=== PATIENT | male | born 2005 | race Caucasian/White ===

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

== ENCOUNTER 2023-11-25 14:30 | Inpatient (IN) ==
[2023-11-25 16:28] LABS: ABS Basophils 0.1 10^3/uL (0.0-0.1); ABS Eosinophils 0.2 10^3/uL (0.0-0.5); ABS Lymphocytes 1.3 10^3/uL (1.0-4.8); ABS Monocytes 0.5 10^3/uL (0.0-1.1); ABS Neutrophils 6.1 10^3/uL (1.5-7.6); ABS Nucleated RBC 0.01 10^3/ul; Eosinophil % 2.2 %; Hematocrit 38.3 % (38-53); Hemoglobin 12.6 g/dL (13.2-16.3); Lymphocyte % 15.9 %; Mean Corpuscular Hemoglobin 27.9 pg (27-33); Mean Corpuscular Hgb Conc 32.8 g/dL (31-36); Mean Corpuscular Volume 84.9 fL (80-97); Mean Platelet Volume 6.4 fL (7.5-11.2); Nucleated Red Blood Cells % 0.1 %/100WBC (0.0-0.8); Platelet Count 751 10^3/uL (150-450); Red Blood Count 4.51 10^6/uL (4.06-5.63); Red Cell Distribution Width 15.3 % (12-17); White Blood Count 8.1 10^3/uL (3.6-10.2)
[2023-11-25 16:45] LABS: Activated Partial Thrombo Time 37.5 seconds (26.0-38.0); INR 1.24 (0.83-1.13)
[2023-11-25 17:07] LABS: Albumin 4.5 g/dL (3.2-5.2); Albumin/Globulin Ratio 1.1 (1-3); C Reactive Protein 77.18 mg/L (<8.01); Calcium 9.7 mg/dL (8.6-10.3); Creatinine, Serum 0.76 mg/dL (0.67-1.17); Globulin 4.2 g/dL (2-4); Potassium 4.2 mmol/L (3.5-5.0); Total Bilirubin 0.3 mg/dL (0.2-1.0); Total Protein 8.7 g/dL (6.4-8.9)
[2023-11-25] MEDS: HYDROmorphone 0.5 MG/0.5 ML SYRINGE IV ONE (17:29)
[2023-11-25] MEDS: Cefepime 2 GM in Dextrose 2 GM/50 ML BAG IV ONE (17:59)
[2023-11-25] MEDS: Vancomycin 1,500 MG in NS 0.9% 250 ml 250 ML IVPB ONE (19:07)
[2023-11-25] MEDS: NS 0.9% 1000 ml BAG 1,000 ML IV SCH (20:58)
[2023-11-25] MEDS ORDERED: Vancomycin per Pharmacy 1 EA NOTE FOLLOW UP SCH (21:00)
[2023-11-25] MEDS: Heparin 5000 UNITS/ML 1 mL VIAL SUBCUT SCH (22:12)
[2023-11-25] MEDS: Senna TAB 8.6 mg TAB PO ONE (22:12)
[2023-11-26] MEDS: Vancomycin 1,250 MG in NS 0.9% 250 ml 250 ML IVPB SCH (02:28)
[2023-11-26] MEDS: Cefepime 1 GM in Dextrose 1 GM/50 ML BAG IV SCH (05:42)
[2023-11-26 05:58] LABS: ABS Eosinophils 0.2 10^3/uL (0.0-0.5); ABS Lymphocytes 1.8 10^3/uL (1.0-4.8); ABS Monocytes 0.6 10^3/uL (0.0-1.1); ABS Neutrophils 3.5 10^3/uL (1.5-7.6); Eosinophil % 3.7 %; Hematocrit 34.1 % (38-53); Hemoglobin 11.2 g/dL (13.2-16.3); Lymphocyte % 28.3 %; Mean Corpuscular Hemoglobin 27.9 pg (27-33); Mean Corpuscular Hgb Conc 32.7 g/dL (31-36); Mean Corpuscular Volume 85.3 fL (80-97); Mean Platelet Volume 6.3 fL (7.5-11.2); Platelet Count 570 10^3/uL (150-450); Red Blood Count 3.99 10^6/uL (4.06-5.63); Red Cell Distribution Width 15.2 % (12-17); White Blood Count 6.2 10^3/uL (3.6-10.2)
[2023-11-26] MEDS ORDERED: Cefepime ADVAN 1 GM in NS 0.9% 50 ML 50 ML IVPB SCH (06:00)
[2023-11-26 06:44] LABS: Calcium 8.7 mg/dL (8.6-10.3); Creatinine, Serum 0.71 mg/dL (0.67-1.17); Potassium 4.5 mmol/L (3.5-5.0); eGFR CKD-EPI 134.7 (>60)
[2023-11-26] MEDS: Morphine 2 MG/ML SYRINGE IV PRN (11:07)
[2023-11-26] MEDS: Vancomycin Trough Check NOTE FOLLOW UP ONE (19:50)
[2023-11-27 08:36] LABS: Hematocrit 33.8 % (38-53); Hemoglobin 11.3 g/dL (13.2-16.3); Mean Corpuscular Hemoglobin 28.5 pg (27-33); Mean Corpuscular Hgb Conc 33.4 g/dL (31-36); Mean Corpuscular Volume 85.4 fL (80-97); Mean Platelet Volume 6.2 fL (7.5-11.2); Platelet Count 558 10^3/uL (150-450); Red Blood Count 3.96 10^6/uL (4.06-5.63); Red Cell Distribution Width 15.4 % (12-17); White Blood Count 5.3 10^3/uL (3.6-10.2)
[2023-11-27] MEDS ORDERED: Senna TAB 8.6 mg TAB PO PRN (10:01)
[2023-11-28 06:27] LABS: ABS Eosinophils 0.3 10^3/uL (0.0-0.5); ABS Lymphocytes 1.4 10^3/uL (1.0-4.8); ABS Monocytes 0.6 10^3/uL (0.0-1.1); Eosinophil % 4.8 %; Hematocrit 34.5 % (38-53); Hemoglobin 11.3 g/dL (13.2-16.3); Lymphocyte % 26.7 %; Mean Corpuscular Hemoglobin 27.8 pg (27-33); Mean Corpuscular Hgb Conc 32.8 g/dL (31-36); Mean Corpuscular Volume 84.7 fL (80-97); Mean Platelet Volume 6.2 fL (7.5-11.2); Nucleated Red Blood Cells % 0.1 %/100WBC (0.0-0.8); Platelet Count 601 10^3/uL (150-450); Red Blood Count 4.07 10^6/uL (4.06-5.63); White Blood Count 5.3 10^3/uL (3.6-10.2)
[2023-11-28 06:44] LABS: Calcium 9.2 mg/dL (8.6-10.3); Creatinine, Serum 0.8 mg/dL (0.67-1.17); Potassium 4.4 mmol/L (3.5-5.0); eGFR CKD-EPI 129.9 (>60)
[2023-11-28 09:05] LABS: C Reactive Protein 77.5 mg/L (<8.01)
[2023-11-28] MEDS: Polyethylene Glycol 3350 17 GM PACKET PO PRN (16:12)
[2023-11-29 06:37] LABS: Hematocrit 35.9 % (38-53); Hemoglobin 12.1 g/dL (13.2-16.3); Mean Corpuscular Hemoglobin 28.6 pg (27-33); Mean Corpuscular Hgb Conc 33.7 g/dL (31-36); Mean Corpuscular Volume 84.7 fL (80-97); Mean Platelet Volume 6.3 fL (7.5-11.2); Platelet Count 629 10^3/uL (150-450); Red Blood Count 4.24 10^6/uL (4.06-5.63)
[2023-11-29 13:39] VITALS: BP 125/65
[2023-11-30] MEDS ORDERED: Vancomycin Trough Check NOTE FOLLOW UP ONE (09:30)
== END 2023-11-29 16:49 | disposition home or self-care (01) | DRG 724 ==
LOC: EDHOLD 14:30 → ED 14:30 → SUATTDRO 19:25 → MED 11-26 12:10
PROVIDERS: ADMIT Hospitalist; ATTEND Internal Medicine

== ENCOUNTER 2024-02-06 16:18 | Inpatient (IN) ==
[2024-02-06] MEDS: Acetaminophen IV 1 GM/100ML 1,000 MG/100 ML BAG IV ONE (16:45)
[2024-02-06] MEDS: Morphine 4 MG/ML VIAL (1 ml) IV ONE (16:45)
[2024-02-06] MEDS: Lactated Ringers 1000 ml BAG 1,000 ML IV ONE (16:46)
[2024-02-06 17:02] LABS: ABS Basophils 0.1 10^3/uL (0.0-0.1); ABS Eosinophils 0.1 10^3/uL (0.0-0.5); ABS Lymphocytes 1.8 10^3/uL (1.0-4.8); ABS Monocytes 0.6 10^3/uL (0.0-1.1); ABS Neutrophils 5.9 10^3/uL (1.5-7.6); ABS Nucleated RBC 0.01 10^3/ul; Eosinophil % 1.3 %; Hematocrit 41.8 % (38-53); Hemoglobin 13.8 g/dL (13.2-16.3); Lymphocyte % 21.1 %; Mean Corpuscular Hemoglobin 28.6 pg (27-33); Mean Corpuscular Volume 86.7 fL (80-97); Mean Platelet Volume 6.7 fL (7.5-11.2); Nucleated Red Blood Cells % 0.1 %/100WBC (0.0-0.8); Platelet Count 691 10^3/uL (150-450); Red Blood Count 4.82 10^6/uL (4.06-5.63); Red Cell Distribution Width 15.2 % (12-17); White Blood Count 8.5 10^3/uL (3.6-10.2)
[2024-02-06 17:06] LABS: Activated Partial Thrombo Time 36.4 seconds (26.0-38.0); INR 1.29 (0.85-1.14)
[2024-02-06 17:34] LABS: Albumin 4.8 g/dL (3.2-5.2); Albumin/Globulin Ratio 1.1 (1-3); C Reactive Protein 124.04 mg/L (<8.01); Calcium 10.1 mg/dL (8.6-10.3); Creatinine, Serum 0.99 mg/dL (0.67-1.17); Globulin 4.2 g/dL (2-4); Potassium 4.3 mmol/L (3.5-5.0); Total Bilirubin 0.6 mg/dL (0.2-1.0); eGFR CKD-EPI 111.8 (>60)
[2024-02-06] MEDS: Iohexol 350 (CONTRAST) 500 ML MDV IV ONE (18:28)
[2024-02-06] MEDS: Cefepime 1 GM in Dextrose 1 GM/50 ML BAG IV ONE (22:25)
[2024-02-06 23:15] LABS: Urine Appearance Clear; Urine Bilirubin Negative (Negative); Urine Blood Negative (Negative); Urine Color Yellow; Urine Glucose Negative (Negative); Urine Ketones 3+ (Negative); Urine Nitrite Negative (Negative); Urine Protein Trace (Negative); Urine Specific Gravity >1.050 (1.002-1.030); Urine Urobilinogen Negative (Negative)
[2024-02-07] MEDS: Vancomycin 1,250 MG in NS 0.9% 250 ml 250 ML IVPB ONE ×2 (00:08→12:37)
[2024-02-07] MEDS: Morphine 2 MG/ML SYRINGE IV PRN (02:43)
[2024-02-07] MEDS ORDERED: Vancomycin 1,000 MG in NS 0.9% 250 ml 250 ML IVPB ONE (08:48)
[2024-02-07] MEDS ORDERED: Vancomycin per Pharmacy 1 EA NOTE FOLLOW UP SCH (09:00)
[2024-02-07] MEDS: Lactated Ringers 1000 ml BAG 1,000 ML IV SCH (11:12)
[2024-02-07] MEDS: Enoxaparin 30 MG/0.3 ML SYR SUBCUT SCH (11:16)
[2024-02-07] MEDS: cefTRIAXone 1 gm/50 mL D5W 1 GM/50 ML BAG IV SCH (11:18)
[2024-02-07] MEDS: Enoxaparin 40 MG/0.4 ML SYR SUBCUT SCH (11:31)
[2024-02-07] MEDS: Acetaminophen IV 1 GM/100ML 1,000 MG/100 ML BAG IV PRN (15:51)
[2024-02-07] MEDS: Vancomycin 1,250 MG in NS 0.9% 250 ml 250 ML IVPB SCH (20:06)
[2024-02-08 05:56] VITALS: BP 106/55
[2024-02-08] MEDS ORDERED: Vancomycin Trough Check NOTE FOLLOW UP ONE (11:30)
== END 2024-02-08 09:00 | disposition short-term general hospital (02) | DRG 721 ==
LOC: ED 16:18 → EDHOLD 02-07 00:33 → SSU 02-07 01:58
PROVIDERS: ADMIT Internal Medicine; ATTEND Internal Medicine